=== PATIENT | male | born 1955 | race Caucasian/White ===

== ENCOUNTER → 2017-12-04 | Outpatient (CLI) | payer MEDICARE ==
[~2017-12-04] MED LIST: AMITRIPTYLINE H50 MG PO; CARBIDOPA-LEVO1 EACH PO; CLONAZEPAM0.5 M1 PO; CLONAZEPAM1 MG PO; CO Q-10 PO; COMTAN200 MG PO; MELATONIN3 MG PO; MIRTAZAPINE7.5 MG PO; MULTI-VITAMIN1 EACH; MULTIVITAMIN1 EAC2 PO; ROPINIROLE HCL1 MG PO; ROPINIROLE HCL8 MG PO; RYTARY PO; SINEMET 25-1001 EACH PO; STALEVO 100 TA1 EACH PO; TAMSULOSIN HCL0.4 MG PO; Z.0.DESYREL50 MG PO; Z.0.FLOMAX0.4 MG PO; [UNRECOGNIZED DRUG - OTHER] PO; [UNRECOGNIZED DRUG - OTHER] PO
--- NOTE | 2017-12-04 12:08 | Diagnostic Imaging Report ---
PROCEDURE:X-RAY MODIFIED BARIUM SWALLOW COMPARISON:[facility], DX, MODIFIED BA. SWALLOW, 01/15/2011, 8:25. INDICATIONS:PARKINSONS, SILENT ASPIRATION DISCUSSION:Fluoroscopic examination was performed in conjunction with speech pathology, during swallowing of a variety of thin and thick liquid consistencies. Fluoroscopy time: 2.2 minutes Total dose: 13.32 mGy CONCLUSION: 1. There is consistent laryngeal penetration into the vestibule. 2. There is la nena silent and overt aspiration during swallowing with cup and straw sips of thin liquids. 3. Chin tuck maneuver did not prevent aspiration. Moderate to severe residue following swallowing. 4. Please see the report from speech pathology for complete details. Roni Perez D.O. Dictated by: Roni Perez D.O. on 12/04/2017 at 12:16 Electronically approved by: Roni Perez D.O. on 12/04/2017 at 12:16
== END ==
LOC: DX 09:18
PROVIDERS: ATTEND Psychiatry & Neurology Neurology
DX: R13.19 Other dysphagia (principal); G20 Parkinson's disease
CPT/HCPCS: 74230; 92611; G8996; G8997

== ENCOUNTER 2017-12-25 11:57 | Outpatient (RCR) | payer MEDICARE | END 2018-01-01 | LOC: ST 11:57 | PROVIDERS: ATTEND Psychiatry & Neurology Neurology | DX: R13.13 Dysphagia, pharyngeal phase (principal); T17.920A Food in respiratory tract, part unspecified causing asphyxiation, initial encounter; G20 Parkinson's disease | CPT/HCPCS: 92526; G8996; G8997 ==

== ENCOUNTER 2018-01-21 10:49 | Outpatient (RCR) | payer MEDICARE | END 2018-01-29 | LOC: ST 10:49 | PROVIDERS: ATTEND Psychiatry & Neurology Neurology | DX: R13.13 Dysphagia, pharyngeal phase (principal); G20 Parkinson's disease ==

== ENCOUNTER → 2018-02-05 | Outpatient (CLI) | payer MEDICARE ==
--- NOTE | 2018-02-05 12:05 | Diagnostic Imaging Report ---
PROCEDURE:X-RAY MODIFIED BARIUM SWALLOW COMPARISON:None. INDICATIONS:Not provided. DISCUSSION:Fluoroscopic examination was performed in conjunction with speech pathology, during swallowing of a variety of thin and thick liquid consistencies. CONCLUSION: Silent aspiration was noted. Please see the report from speech pathology for complete details. Dictated by: Jared Vines M.D. on 02/05/2018 at 12:05 Electronically approved by: Jared Vines M.D. on 02/05/2018 at 12:05
== END ==
LOC: DX 10:38
PROVIDERS: ATTEND Psychiatry & Neurology Neurology
DX: R13.13 Dysphagia, pharyngeal phase (principal); G20 Parkinson's disease
CPT/HCPCS: 74230; 92611; G8996; G8997

== ENCOUNTER 2018-02-26 11:00 | Outpatient (RCR) | payer MEDICARE | END 2018-03-01 | LOC: ST 11:00 | PROVIDERS: ATTEND Psychiatry & Neurology Neurology | DX: R13.13 Dysphagia, pharyngeal phase (principal); G20 Parkinson's disease; T17.920A Food in respiratory tract, part unspecified causing asphyxiation, initial encounter ==

== ENCOUNTER 2018-03-19 11:00 | Outpatient (RCR) | payer MEDICARE | END 2018-03-31 | LOC: ST 11:00 | PROVIDERS: ATTEND Psychiatry & Neurology Neurology | DX: R13.13 Dysphagia, pharyngeal phase (principal); G20 Parkinson's disease ==

== ENCOUNTER → 2018-03-21 | Outpatient (CLI) | payer MEDICARE ==
--- NOTE | 2018-03-21 11:57 | Diagnostic Imaging Report ---
PROCEDURE:X-RAY MODIFIED BARIUM SWALLOW COMPARISON:None. INDICATIONS:Not provided. DISCUSSION:Fluoroscopic examination was performed in conjunction with speech pathology, during swallowing of a variety of thin and thick liquid consistencies. CONCLUSION:Laryngeal penetration and la nena aspiration were noted upon administration of thin liquid barium. Please see the report from speech pathology for complete details. Dictated by: Mekhi Moscoso M.D. on 03/21/2018 at 11:58 Electronically approved by: Mekhi Moscoso M.D. on 03/21/2018 at 11:58
== END ==
LOC: DX 10:48
PROVIDERS: ATTEND Psychiatry & Neurology Neurology
DX: R13.10 Dysphagia, unspecified (principal); G20 Parkinson's disease; T17.920A Food in respiratory tract, part unspecified causing asphyxiation, initial encounter
CPT/HCPCS: 74230; 92611; G8996; G8997; G8998

== ENCOUNTER 2024-06-22 17:58 | Emergency (ER) | payer MEDICARE ==
[~2024-06-22] VITALS: Ht 165.1 cm; Wt 59.0 kg
[2024-06-22 20:46] VITALS: TEMP 97.4
[2024-06-23 00:08] VITALS: PULSE 52; RESP 17; O2SAT 100
== END 2024-06-23 00:20 | disposition other institution (70) ==
LOC: ER 21:00
DX: S02.40DA Maxillary fracture, left side, initial encounter for closed fracture (principal); S02.32XA Fracture of orbital floor, left side, initial encounter for closed fracture; S02.40FA Zygomatic fracture, left side, initial encounter for closed fracture; W01.0XXA Fall on same level from slipping, tripping and stumbling without subsequent striking against object, initial encounter; Y93.01 Activity, walking, marching and hiking; Y92.89 Other specified places as the place of occurrence of the external cause; G20.A1 Parkinson's disease without dyskinesia, without mention of fluctuations
CPT/HCPCS: 70450; 70486; 72125; 99284